=== PATIENT | female | born 1965 | race Caucasian/White ===

== ENCOUNTER → 2023-05-27 16:31 | Outpatient (REF) | payer BC, SELFPAY | LOC: HWWDC 16:31 | PROVIDERS: ATTENDING PHYSICIAN Obstetrics & Gynecology; FAMILY PHYSICIAN Family Medicine | DX: Z12.31 Encounter for screening mammogram for malignant neoplasm of breast (principal) | CPT/HCPCS: 77063; 77067 ==

== ENCOUNTER → 2023-06-04 08:28 | Outpatient (REF) | payer BC, SELFPAY | LOC: WDC 08:28 | PROVIDERS: ATTENDING PHYSICIAN Obstetrics & Gynecology; FAMILY PHYSICIAN Family Medicine | DX: R92.8 Other abnormal and inconclusive findings on diagnostic imaging of breast (principal) | CPT/HCPCS: 76642 ==

== ENCOUNTER → 2023-12-25 19:21 | Outpatient (REF) | payer BC, SELFPAY | LOC: MRI 3T 19:21 | PROVIDERS: ATTENDING PHYSICIAN Nurse Practitioner Adult Health; FAMILY PHYSICIAN Family Medicine | DX: Z15.01 Genetic susceptibility to malignant neoplasm of breast (principal) | CPT/HCPCS: 77049; A9585 ==

== ENCOUNTER → 2023-12-26 12:03 | Outpatient (REF) | payer BC, SELFPAY | LOC: HWRAD 12:03 | PROVIDERS: ATTENDING PHYSICIAN Obstetrics & Gynecology Gynecologic Oncology; FAMILY PHYSICIAN Family Medicine | DX: Z15.02 Genetic susceptibility to malignant neoplasm of ovary (principal); Z12.4 Encounter for screening for malignant neoplasm of cervix; Z15.01 Genetic susceptibility to malignant neoplasm of breast; R10.30 Lower abdominal pain, unspecified | CPT/HCPCS: 74177; Q9967 ==

== ENCOUNTER → 2024-01-02 06:16 | Day surgery (SDC) | payer BC, SELFPAY | LOC: GI 06:16 | PROVIDERS: ATTENDING PHYSICIAN Specialist | DX: Z12.11 Encounter for screening for malignant neoplasm of colon (principal); K57.30 Diverticulosis of large intestine without perforation or abscess without bleeding; Z15.09 Genetic susceptibility to other malignant neoplasm; Z15.01 Genetic susceptibility to malignant neoplasm of breast; D12.5 Benign neoplasm of sigmoid colon; K63.5 Polyp of colon | CPT/HCPCS: 45380; 88305 ==

== ENCOUNTER → 2024-01-06 08:19 | Outpatient (REF) | payer BC, SELFPAY | LOC: HWRAD 08:19 | PROVIDERS: ATTENDING PHYSICIAN Obstetrics & Gynecology Gynecologic Oncology; FAMILY PHYSICIAN Family Medicine | DX: Z15.02 Genetic susceptibility to malignant neoplasm of ovary (principal); Z12.4 Encounter for screening for malignant neoplasm of cervix; Z15.01 Genetic susceptibility to malignant neoplasm of breast; R10.30 Lower abdominal pain, unspecified | CPT/HCPCS: 76830; 76856 ==

== ENCOUNTER 2024-02-24 06:41 | Day surgery (SDC) | payer BC, SELFPAY ==
[2024-02-20 08:57] LABS: % Basophils 0.5 % (0-2); % Lymphocytes 38.8 % (20.5-51.1); % Monocytes 10.8 % (1.7-9.3); % Neutrophils 46.9 % (42.2-75.2); Absolute Eosinophils 0.1 10^3/uL (0-0.7); Absolute Lymphocytes 1.4 10^3/uL (1.2-3.4); Absolute Monocytes 0.4 10^3/uL (0.1-0.6); Absolute Neutrophils 1.7 10^3/uL (1.4-6.5); Hematocrit 41.8 % (37.0-47.0); Hemoglobin 14.5 g/dL (12.0-16.0); Mean Corp Hgb Conc. 34.7 g/dL (33.0-37.0); Mean Corpuscular Hgb 30.9 pg (27.0-31.0); Mean Corpuscular Volume 88.9 fL (81.0-99.0); Mean Platelet Volume 10.1 fL (7.4-10.4); Nucleated Red Blood Cells % 0 %; Platelet Count 170 10^3/uL (130-400); Red Cell Dist. Width 12.9 % (11.5-14.5); White Blood Cell Count 3.7 10^3/uL (4.8-10.8)
[2024-02-20 09:08] LABS: ALT (SGPT) 38 U/L (0-35); AST (SGOT) 38 U/L (14-36); Albumin 4.6 g/dl (3.5-5.0); Alkaline Phosphatase 60 U/L (38-126); Blood Urea Nitrogen 18 mg/dl (7-17); Calcium 9.1 mg/dl (8.4-10.2); Carbon Dioxide 28 mmol/L (22-30); Chloride 106 mmol/L (98-107); Glucose 88 mg/dl (70-99); Potassium 4.2 mmol/L (3.5-5.1); Sodium 144 mmol/L (135-145); Total Bilirubin 0.7 mg/dl (0.2-1.3); Total Protein 6.9 g/dl (6.3-8.2); eGFR > 60.00
[2024-02-20 13:47] VITALS: BMI 25.5
--- NOTE | 2024-02-21 14:15 | W.CON.GYNONC ---
Chief Complaint
-
Risk Reducing surgery due to germline BRCA2 mutation
History of Present Illness
58�year�old woman who is presenting for consultation re new diagnosis of BRCA2 mutation. She is presenting for
consultation regarding risk reducing surgery. Patient's apparently had some prostate issues, he was tested and noted to
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
mother with twos primary breast cancer she was approved to undergo BRCA testing. Patient does not have a copy of her test with
her today
She has been menopausal since age 51. Pap smears are being done as per guidelines every few years.
Gynecologic care is provided by [facility].
Past medical history significant for hypertension and elevated cholesterol as well as squamous cell and basal cell carcinoma and
hand
Past surgical history significant for bunion surgery, and Mohs surgery
Medications include Diovan and hydrochlorothiazide as well as statin
Social history significant for she denies tobacco drug marijuana use, does drink alcohol socially
Family history significant for maternal breast cancer 2 separate primaries at age 54 and 61, she of other causes. Mother was
adopted and there is no other family history. Father side of the history there is no evidence of malignancy
Screening test, patient has had a mammogram this year, is scheduled to undergo MRI of breast, she has had colonoscopy
Allergies No�Known�Drug�Allergies
Medications
rosuvastatin�10�mg�tablet 1�p.o.�q.�day
valsartan�80�mg�hydrochlorothiazide�12.5�mg�tablet 1/2�daily
Social�History Patient�denies�ever�using�tobacco. Social�use�of�alcohol. Denies�any�illicit�drug�use. Occupational�Status:�Former���civil structural engineer. Marital�Status:�Patient�is�
Gynecological�History Age�at�Menarche�11�years.�Age�at�menopause:�51�years.�Patient�reports�3�pregnancies.�Her�age�at�first�full�term��was�26 years. No�history�of�hormone�replacement�therapy.
Medical History
Allergies
Allergies reflect when allergies were last updated in [facility].
No Known Allergies Allergy (Verified 05/20/19 09:56)
Physical Exam
Physical Exam
Pelvic Examination:
External normal labia, urethra, anus.
Vagina: Normal mucosa.
Cervix: normal appearance, no discharge. prolapsing cervix
Uterus: normal size, grade 3 proplase appreciated on exam.
Adnexa: No pelvic mass. I am unsure of left adnexa and left pelvis due to excessive amounts of stool in the colon
RVE: no masses or nodularity
General: Well developed, well nourished patient. In no acute distress.
Neck: No thyromegaly. No cervical lymphadenopathy.
Lungs: Clear to auscultation. Good air movement bilaterally.
Cardiac: Regular rate. Regular rhythm. No murmurs appreciated.
Right Breast: No masses or dimpling. No nipple discharge.
Left Breast: No masses or dimpling. No nipple discharge.
Abdomen: Abdomen is soft. Non�tender to palpation. Non�distended.
Extremities: No edema.
Hematologic/Lymphatic: No palpable lymphadenopathy.
Musculoskeletal: Normal range of motion. Strength and Tone are normal.
Skin:Non�jaundiced. No petechia. No purpura.
Neurologic: Speech is fluent. Normal gait and station. Cranial nerves intact.
Results
-
02/20/24 06:38
02/20/24 06:38
CA 125 -FinalOrdered by: TOÑA PEÑA
CA125 9 U/mL <35 Z99
TSH W/REFLEX TO FT4 -FinalOrdered by: TOÑA PEÑA
TSH 3.25 mIU/L 0.40-4.50 Z99
URINALYSIS REFLEX -FinalOrdered by: TOÑA PEÑA
Color YELLOW YELLOW Z99
Appearance CLEAR CLEAR Z99
Sp [place] 1.006 1.001-1.035 Z99
ph 5.5 5.0-8.0 Z99
Glucose (urine) NEGATIVE NEGATIVE Z99
Bilirubin (UA) NEGATIVE NEGATIVE Z99
Ketone NEGATIVE NEGATIVE Z99
Occult Blood NEGATIVE NEGATIVE Z99
Protein NEGATIVE NEGATIVE Z99
Nitrite NEGATIVE NEGATIVE Z99
Leuk Esterase NEGATIVE NEGATIVE Z99
Diagnostic Imaging Report
Exams: CT Abd/pel W Iv And Oral Contr
CPT: 86752
PROCEDURES: CT Abd/pel W Iv And Oral Contr
INDICATION: 58-year-old with lower abdominal pain.
TECHNIQUE: CT examination of the abdomen and pelvis was performed following the administration of nonionic intravenous contrast. Oral contrast was administered. Coronal and sagittal reformatted images were obtained. Automatic exposure control
radiation dose reduction technology was utilized.
COMPARISON: Pelvic ultrasound from 08/05/2018
FINDINGS:
LOWER CHEST: Lung bases clear. No pleural effusion.
LIVER: Subcentimeter hypodensity within the left lobe too small to characterize.
GALLBLADDER: Within normal limits.
BILE DUCTS: Within normal limits.
PANCREAS: Within normal limits.
SPLEEN: Within normal limits.
ADRENALS: Within normal limits.
KIDNEYS/URETERS: Within normal limits.
BOWEL: No obstruction or wall thickening. Unremarkable terminal ileum and appendix.
PERITONEUM: No ascites or free air.
REPRODUCTIVE: 21 mm low-attenuation cyst within the left ovary.
BLADDER: Within normal limits.
VESSELS: Non-aneurysmal abdominal aorta.
RETROPERITONEUM: No retroperitoneal or pelvic lymphadenopathy. Subtle nonspecific mild infiltration/stranding of the central mesentery.
ABDOMINAL WALL: Within normal limits.
BONES: No suspicious lesions.
IMPRESSION:
1. No acute findings within the abdomen or pelvis.
2. 21 mm low-attenuation cyst within the LEFT ovary.
3. Additional findings above.
Electronically signed by Servando Parmar MD, 12/26/2023 12:59 PM
[facility] Dose Report: Up-to-date CT equipment and radiation dose reduction techniques were employed. CTDIvol: 9.1 mGy. DLP: 502 mGy-cm.
Dictated By: Ghulam BATISTAServando
Dictated Date & Time: 12/26/23 1248
Impression / Plan
-
This is a patient with newly diagnosed BRCA2 mutation, we discussed that as per information and NCCN guidelines there is
elevated risk of breast, ovary and tube as well as melanoma cancers.
She is already under care of Dr. Cruz for counseling regarding risk reduction of breast and is scheduled to undergo MRI. She is
considering risk reducing prophylactic mastectomy.
Patient has a normal CA125 level
Ultrasound of pelvis reveals simple cyst of left ovary otherwise no other abnormalities present
CT of abdomen and pelvis does not show any evidence of ascites adenopathy or any other upper abdominal abnormalities
My recommendation is to consider risk reducing surgery to include removal of fallopian tubes and ovaries. In addition I do
recommend total hysterectomy in conjunction with the procedure because of prolapse.
She is scheduled on February 24, 2024 at [facility].
The procedure can be done robotically, we discussed risks benefits and alternatives. The risk of fallopian tube and ovary cancer in
this patient is approximately 20 to 25% and the risk can be reduced after complete removal down to 1% which is baseline
population. She does understand that she remains at risk for development of primary peritoneal cancer in her lifetime.
[2024-02-24] VITALS (11 sets, daily range): BP systolic 112–151; BP diastolic 57–87; BMI 25.5
[2024-02-24] MEDS: NEURONTIN 300 MG PO (09:23)
[2024-02-24] MEDS: NORMOSOL-R/PLASMALYTE-A 1000 IV ×2 (09:24→14:31)
[2024-02-24] MEDS: TYLENOL 1000 MG PO (09:24)
[2024-02-24] MEDS: CELEBREX 200 MG PO (09:24)
[2024-02-24] MEDS: HEPARIN 5000 UNITS SC (09:24)
[2024-02-24] MEDS: DILAUDID 0.5 MG IV (12:33)
[2024-02-24] MEDS: DEMEROL 12.5 MG IV ×2 (12:48→13:02)
--- NOTE | 2024-02-24 13:07 | SUR.PHASEI ---
patient received from OR, sleepy but urge to void, on bedpan - not successful. Explained sensation may be from cath the was discontinued or surgery. Then c/o severe cramping - medicated with dilaudid - without relief. Then shivers and pain -
Demerol 12.5mg given IV with relief and shivers and less pain. vss. no vaginal drainage
--- NOTE | 2024-02-24 15:42 | OR.RPT ---
Operative Report
Operative Report
Date of procedure: February 24, 2024
Preoperative diagnosis: BRCA2 mutation desirous of risk reducing gynecologic surgery, uterovaginal prolapse
Postoperative diagnosis: Normal-appearing bilateral right tube and ovary
Procedure:
Robotic assisted total laparoscopic hysterectomy, bilateral salpingo-oophorectomy, pelvic washings
Robotic assisted laparoscopic uterosacral colpopexy
Surgeon: Dale Granados MD
Assist: Domenic Levi PA-C, Luis VICKERS
Anesthesia: General Endotracheal intubation
Estimated blood loss: 50 cc
Complication: None
Specimens: Uterus and cervix with right and left tube and ovary, pelvic washings
Indication for surgery: This is a patient with newly diagnosed BRCA2 mutation, we discussed that as per information and NCCN guidelines there is
elevated risk of breast, ovary and tube as well as melanoma cancers. She is desirous of risk reduction for ovary/tube cancer at same time of hysterectomy for uterine prolapse.
Procedure in detail: This patient was brought to the operating room, placed in supine position, general anesthesia was administered, she was intubated without any difficulty. She was placed in lithotomy position using yellowfin stirrups, prepped on
the abdomen perineum and vagina. Brasher catheter was placed under sterile conditions to drain the bladder. Timeout procedure was carried out and she was properly identified, we ensured that she received Ancef and Flagyl prophylaxis. Next speculum
was placed in the vagina, anterior lip of the cervix was grasped with single-tooth tenaculum. The cervical canal was dilated and sounded to approximately 7 to 8 cm. We placed the uterine manipulator academic manager type with 3.5 cm DANIELA ring in the
cervix, and vaginal cuff occluder was insufflated. Attention was turned abdominally, Veress needle was inserted just below left subcostal margin into the peritoneal cavity and CO2 gas was insufflated up to pressure of 15 mmHg. 8 mm Xi robotic port
was introduced 25 cm cephalad to symphysis pubis into the peritoneal cavity, under direct visualization 4 additional ports were placed right and left upper quadrants and right and left lateral abdomen. Survey of the upper abdomen reveals right and
left lobes of the liver as well as diaphragms to be normal. Gallbladder is unremarkable. Peritoneal surfaces and omentum are normal. We performed a tap block, injecting ropivacaine 0.5% 30 mg admixed with 30 cc sterile saline injected equally at
lateral aspect of right upper quadrant and left upper quadrant 2 fingerbreadths below the costal margin under direct visualization, as well as right and left lateral mid abdomen. We then placed the patient at 28 degree Trendelenburg, robotic system
was docked and pelvic organs were visualized. Pelvic washings were collected in the posterior cul-de-sac and submitted for cytology evaluation. Right and left round ligaments were sealed and divided anterior and posterior leaves of the broad
ligament were dissected open. Retroperitoneal spaces were developed paravesical and pararectal spaces were developed the course of the ureter was identified bilaterally a window was created in the avascular window between ureter and IP ligaments
both IP ligaments were sealed and divided tubes and ovaries were left attached to the uterus. Bladder flap was sharply developed and advanced below the cervicovaginal junction. Uterine arteries were skeletonized bilaterally. Uterine arteries
followed by cardinal ligaments followed by uterosacral ligaments were serially sealed and divided. Circumferential incision was made over the DANIELA ring until the specimen was detached. Specimen including uterus cervix bilateral tubes and ovaries
were removed through the vagina. 0 Vicryl suture ligatures were placed in a [id number] fashion incorporating uterosacral ligaments on right and left vaginal apices. Next Cos Cob-Ivan suture was used to grasp the uterosacral ligaments
approximately a centimeter from the vaginal apex and 2 separate sutures were placed to suspend the vaginal apex and incorporate both uterosacral ligaments together and these were tied in place. I then used a V-Loc suture to close the vaginal cuff
starting from the right apex to the left and a second layer coming back to the right side. We irrigated the pelvis copiously and there was excellent hemostasis. All laparoscopic ports were removed pneumoperitoneum was released and robotic system
was undocked. The skin at all port sites were closed with 4-0 Monocryl in subcuticular fashion. Brasher catheter was removed. The vagina was inspected and there was no evidence of bleeding or lacerations. Patient was awakened extubated and
returned back to recovery room stable awake and extubated condition. Counts of laps instruments and needle was correct x 2. I was present and scrubbed for entire procedure as dictated above.
Disposition: To PACU, awake alert extubated
[2024-02-24] MEDS: TYLENOL 650 MG PO (15:54)
== END 2024-02-24 16:48 | disposition home or self-care (01) ==
LOC: SDS 06:41
PROVIDERS: ATTENDING PHYSICIAN Obstetrics & Gynecology Gynecologic Oncology; FAMILY PHYSICIAN Family Medicine
DX: D25.9 Leiomyoma of uterus, unspecified (principal); N83.8 Other noninflammatory disorders of ovary, fallopian tube and broad ligament; D27.1 Benign neoplasm of left ovary; N81.4 Uterovaginal prolapse, unspecified; Z15.01 Genetic susceptibility to malignant neoplasm of breast; Z15.02 Genetic susceptibility to malignant neoplasm of ovary; Z15.09 Genetic susceptibility to other malignant neoplasm
CPT/HCPCS: 57425; 58571; 88305; 88307; 36415; 80053; 85025; 86850; 86900; 86901; 88112; 88341; 88342; 93005